=== PATIENT | male | born 1980 | race Two or more races ===

== ENCOUNTER → 2024-06-20 | Outpatient (CLI) | payer MEDICAID, SELFPAY ==
--- NOTE | 2024-06-20 14:30 | XR_ITS ---
Examination: Abdomen sonogram, complete Date and time of exam: June 20, 2024 1424 hours INDICATIONS: Elevated liver enzymes on laboratory examination performed one week ago. Technique: Multiple real-time grayscale transabdominal sonographic images of the abdomen have been obtained. Findings: Normal gallbladder Normal common bile duct 0.3 cm Pancreatic head 3.3 cm Mid and distal aorta not enlarged Liver 16.3 cm hyperechoic liver lesions 3.5 cm, 2.5 cm Normal hepatopedal portal venous oh Patent IVC Right kidney 11.8 cm renal cortex 2.0 cm Left kidney 12.4 cm cortex 2.2 cm Mild bilateral renal cortical scar formation Splenomegaly 13.8 cm IMPRESSION: Recommend CT scan abdomen pelvis pre and post intravenous contrast to confirm hemangiomatous in the right over the liver
== END | disposition home or self-care (01) ==
LOC: CDIM 14:06
PROVIDERS: PCP Nurse Practitioner Family; Referring Provider Nurse Practitioner Family; Visit Provider Nurse Practitioner Family
DX: R74.01 Elevation of levels of liver transaminase levels (principal)
CPT/HCPCS: 76700

== ENCOUNTER → 2024-07-12 | Outpatient (CLI) | payer MEDICAID, SELFPAY | END | disposition home or self-care (01) | PROVIDERS: PCP Nurse Practitioner Family; Referring Provider Nurse Practitioner Family; Visit Provider Nurse Practitioner Family | DX: Z53.8 Procedure and treatment not carried out for other reasons (principal) ==

== ENCOUNTER → 2024-07-17 | Outpatient (CLI) | payer MEDICAID, SELFPAY ==
--- NOTE | 2024-07-17 09:30 | XR_ITS ---
Examination: CT abdomen, without intravenous contrast. CT abdomen, with intravenous contrast. Sagittal and coronal 2-D reconstructions. Time of exam:July 17, 2024, 0912 hours INDICATIONS: Diagnosis liver disease, elevated liver enzymes on laboratory examination last month, CT abdomen 2013 10 mm hypodense upper right lobe liver lesion CTDI: vol (mGy) 22.5 DLP: (mGycm) 991 Technique: Multiple 3.0 mm axial noncontrast images of the abdomen have been obtained. Multiple 3.0 mm axial images post administration 60 cc Isovue-370 intravenous contrast have been obtained. Sagittal and coronal 3-D reconstructions have been obtained. Low dose protocols were performed. One or more of the following dose reduction techniques were used; automated exposure control, adjustment of the mA and/or KV according to patient size, use of iterative reconstruction technique. Findings: 35mm low density liver lesion with subtle nodular enhancement Slightly more caudad 21 mm liver lesion with nodular peripheral enhancement Spleen not enlarged No gallstones No pancreatic or adrenal mass No pancreatic mass Mild edema in the mesentery No bowel obstruction Normal appendix No diverticulitis IMPRESSION: Recommend MRI abdomen pre and post contrast follow-up to confirm hepatic hemangiomas
== END | disposition home or self-care (01) ==
LOC: CCTX 08:45
PROVIDERS: PCP Nurse Practitioner Family; Referring Provider Nurse Practitioner Family; Visit Provider Nurse Practitioner Family
DX: K76.9 Liver disease, unspecified (principal)
CPT/HCPCS: 74170; A4649; Q9967

== ENCOUNTER → 2024-08-31 | Outpatient (CLI) | payer MEDICAID, SELFPAY ==
--- NOTE | 2024-08-31 13:30 | XR_ITS ---
Examination: MRI abdomen with intravenous contrast. MRI abdomen without intravenous contrast. Date and time of exam: August 31, 2024 1326 hours INDICATIONS: Abdominal pain after eating beginning 4 months ago, CT abdomen pelvis July 17, 2024 35 mm low-density lesion with nodular enhancement and more caudad 21 mm liver lesion Technique: Multiple axial, sagittal and coronal sections of the abdomen obtained. Transverse images, TR 6020, TE 107. T1 weighted transverse images, TR 582, TE 9.5. T2-weighted sagittal images, TR 4000, TE 105. T2-weighted sagittal images, TR 4000, TE 5. Coronal images, TR 4210, TE 107. Axial and coronal images are obtained post 19 cc intravenous injection, gadolinium. Findings: Homogeneously enhancing liver lesions are depicted, anterior liver, 34 mm, 20 mm Differential would include hemangiomas, adenomas, focal nodular hyperplasia No intra or extra hepatic biliary tract dilatation No ascites Spleen not enlarged IMPRESSION: Liver lesions as above, recommend repeat hepatic sonography with the radiologist in attendance
== END | disposition home or self-care (01) ==
LOC: SMRI 13:00
PROVIDERS: PCP Nurse Practitioner Family; Referring Provider Nurse Practitioner Family; Visit Provider Nurse Practitioner Family
DX: K76.9 Liver disease, unspecified (principal)
CPT/HCPCS: 74183; A9579

== ENCOUNTER 2024-11-26 16:31 | Emergency (ER) | payer MEDICAID, SELFPAY ==
[2024-11-26 16:40] VITALS: BP 135/81; PULSE 71; RESP 18; TEMP 36.6; O2SAT 95
--- NOTE | 2024-11-26 16:48 | PD.EDRME ---
Rapid Medical Screening Exam E Arrival date/time: 11/26/24 16:31 44-year-old male with no known medical history presents to the emergency room with a chief complaint of urinary frequency, feeling like he is unable to fully empty his bladder, and dysuria x 2 weeks. I have greeted and performed a focused initial assessment of this patient. A comprehensive ED assessment and evaluation of the patient, analysis of all test results, and completion of the medical decision making process will be conducted by additional ED providers. Chief Complaint: Urogenital-Male Vital signs: Vital Signs Temperature 97.8 F 11/26/24 16:40 Pulse Rate 71 11/26/24 16:40 Respiratory Rate 18 11/26/24 16:40 Blood Pressure 135/81 H 11/26/24 16:40 Pulse Oximetry (%) 95 11/26/24 16:40 Oxygen Delivery Method Room Air 11/26/24 16:40 Vital signs reviewed by provider: Yes
[2024-11-26] MEDS: TAMSULOSIN HCL 0.4 MG CAPSULE PO (17:04)
[2024-11-26 17:53] LABS: Collection Type, Urine Clean Catch; Squamous Epithelial Cell,Urine 0 /hpf (0-5)
[2024-11-26 17:57] LABS: Bilirubin,Urine Negative (Negative); Blood,Urine Negative (Negative); Clarity,Urine Clear (Clear/Hazy); Color,Urine Lt-Yellow (Lt Yel-Yel); Culture Indicated,Urine Not Indicated; Glucose, Urine Negative (Negative); Ketones,Urine Negative (Negative); Leukocyte Esterase,Urine Negative (Negative); Nitrite,Urine Negative (Negative); PH,Urine 5.5 (5.0-7.0); Protein,Urine Negative (Neg - Trace); RBC,Urine 2 /hpf (0-3); Specific Gravity,Urine 1.032 (1.001-1.035); Urobilinogen,Urine Negative mg/dL (0.0-1.0); WBC,Urine 1 /hpf (0-5)
--- NOTE | 2024-11-26 18:57 | PD.EDMALE ---
ED Male Genitalurinary RME/HPI General Chief complaint: Urogenital-Male Stated complaint: BURNING/FOAMY WITH URINATION Time Seen by Provider: 11/26/24 18:56 Arrival date/time: 11/26/24 16:31 RME / HPI RME / HPI Narrative: 11/26/24 16:31 44-year-old male with no known medical history presents to the emergency room with a chief complaint of urinary frequency, feeling like he is unable to fully empty his bladder, and dysuria x 2 weeks. I have greeted and performed a focused initial assessment of this patient. A comprehensive ED assessment and evaluation of the patient, analysis of all test results, and completion of the medical decision making process will be conducted by additional ED providers. --------- Dr. Pruitt?s Main ED Evaluation: 44yo male presenting with dysuria and urinary frequency. This is the patient's 3rd presentation of similar symptoms. Denies fever, chills, nausea, or flank pain. No penile discharge. Denies nocturia or post-void dribbling. PMH included HTN and hyperthyroidism. PSH unremarkable. Social history unremarkable. NKDA. Related Data Home Medications ?Medication ?Instructions ?Recorded ?Confirmed levothyroxine 200 mcg tablet 200 mcg PO QDAY 03/12/19 03/12/19 Previous Rx's ?Medication ?Instructions ?Recorded cyclobenzaprine 10 mg tablet 10 mg PO TID PRN muscle spasm #30 03/12/19 tabs ibuprofen 800 mg tablet 800 mg PO TID PRN pain #30 tabs 03/12/19 ciprofloxacin HCl 500 mg tablet 500 mg PO Q12H #20 tabs 11/26/24 (Cipro) phenazopyridine 100 mg tablet 100 mg PO TID PRN pain 6 doses #6 11/26/24 (Pyridium) tabs Allergies Allergy/AdvReac Type Severity Reaction Status Date / Time NKA* Allergy Uncoded 07/04/13 21:59 Review of Systems Review of Systems Systems Reviewed: All systems reviewed, normal except as documented Past Medical History Social History SMOKING STATUS: Never smoker ED Exam Narrative Physical exam: GENERAL APPEARANCE: alert and oriented x 4, well-developed, well-nourished, no acute distress VITALS: All vitals were reviewed and the pulse ox is 95% on room air, which is normal according to my interpretation. HEENT: Normocephalic, atraumatic; pupils equal, round, reactive to light; EOMI; mucous membranes pink, moist; oropharynx clear NECK: Supple LUNGS: CTABL; no wheezes, no rales, no rhonchi HEART: Regular rate, regular rhythm; normal S1, S2; no murmurs ABDOMEN: non distended; normal BS; soft, no tenderness, no guarding, no rebound; no masses, no organomegaly, no hernia BACK: no CVA tenderness EXTREMITIES: atraumatic; no edema NEUROLOGIC: awake; alert and oriented x4; cranial nerves II-XII grossly intact; no focal sensory or motor deficits PSYCHIATRIC: appropriate mood and affect SKIN: warm, dry, normal color; no rashes Course Quality Measures none Orders Category Date Time Status UA, C/S IF [Urinalysis, C/S if Indicated] Stat Lab 11/26/24 17:41 Completed Ciprofloxacin HCl [Ciprofloxacin] Med 11/26/24 19:06 Discontinued 250 mg PO X1 ONE Phenazopyridine HCl [Pyridium] Med 11/26/24 19:06 Discontinued 100 mg PO X1 ONE Tamsulosin HCl [Flomax] Med 11/26/24 16:49 Discontinued 0.4 mg PO X1 ONE Vital Signs Vital signs: Vital Signs Temperature 97.8 F 11/26/24 16:40 Pulse Rate 71 11/26/24 16:40 Respiratory Rate 18 11/26/24 16:40 Blood Pressure 135/81 H 11/26/24 16:40 Pulse Oximetry (%) 95 11/26/24 16:40 Oxygen Delivery Method Room Air 11/26/24 16:40 Urogenital - Male [facility] Narrative [facility] Narrative:: Scribe Attestation: 11/26/24 - La Clarke am scribing for and in the presence of Dr. Pruitt. 44yo male presenting with dysuria and urinary frequency. This is the patient's 3rd presentation of similar symptoms. Denies fever, chills, nausea, or flank pain. Please see PE findings. UA is unremarkable. Given this is now the patient's 3rd presentation with urinary irritation symptoms, suspect urethritis. Will treat with Cipro and Pyridium empirically. Additional consideration is low grade prostatitis. Patient encouraged to follow-up with urology as recommended. Precaution instructions issued. Patient data External records reviewed:: [facility] previous records (Per chart review, patient has no relevant previous ED visits or admissions to this facility.) Clinical information provided by:: patient Social determinants that could affect healthcare access:: none Patient has the following chronic illnesses:: none How is presenting disease/condition affected by chronic disease/condition?: no chronic disease Evaluation data The following diagnostics were reviewed and interpreted by me:: lab results Lab and/or radiology exams considered but not ordered:: none Interpretation Summary: See MDM. Medications / Prescriptions Medications or Prescriptions considered but not ordered:: none Medication administrations:: Medication Administration History Discontinued Medications Ciprofloxacin (Ciprofloxacin Hcl 250 Mg Tablet) 250 mg PO X1 ONE Stop: 11/26/24 19:07 Phenazopyridine HCl (Phenazopyridine Hcl 100 Mg Tablet) 100 mg PO X1 ONE Stop: 11/26/24 19:07 Tamsulosin HCl (Tamsulosin Hcl 0.4 Mg Capsule) 0.4 mg PO X1 ONE Stop: 11/26/24 16:50 Last Admin: 11/26/24 17:04 Dose: 0.4 mg Documented By: see above Consultations Consultation(s) initiated? (list below): No Diagnosis Urogenital Male Differential Diagnosis: urinary tract infection, urethritis and prostatitis Most likely diagnosis given after review of the tests above:: urethritis Admission Indicated Admission indicated?: not indicated Admission Request Was there a request for admission?: No Disposition Plan Disposition Plan: Discharge Discharge Attestation Discharge Attestation: The patient and all family members were given an opportunity to ask questions and understood the discharge instructions. Discharge instructions specifically effects, indications for sooner follow up or return to the emergency department, and the expected course of current diagnosis. Patient condition: Stable Discharge Plan Plan Patient Disposition: HOME (Self Care) Discharge Disposition comment: Stable Prescriptions/Referrals Prescriptions/Med Rec: New ciprofloxacin HCl [Cipro] 500 mg tablet 500 mg PO Q12H Qty: 20 0RF phenazopyridine [Pyridium] 100 mg tablet 100 mg PO TID PRN (Reason: pain) Qty: 6 0RF No Action levothyroxine 200 mcg Tablet 200 mcg PO QDAY cyclobenzaprine 10 mg tablet 10 mg PO TID PRN (Reason: muscle spasm) Qty: 30 0RF ibuprofen 800 mg tablet 800 mg PO TID PRN (Reason: pain) Qty: 30 0RF Problem List Clinical Impression: Urethritis Impression comment: Urethritis Patient/Caregiver Discharge Instructions Education Materials: Urethritis in Men Additional Instructions: Force fluids/medications as directed/follow-up with urologist within 1 to 2 weeks. Return if worsening i.e. fevers chills increased urinary irritative symptoms or general worse condition. Print Language: Armenian
[2024-11-26] MEDS: CIPROFLOXACIN HCL 250 MG TABLET PO (19:17)
[2024-11-26] MEDS: PHENAZOPYRIDINE HCL 100 MG TABLET PO (19:17)
[2024-11-26 19:30] VITALS: BP 136/66; PULSE 65; RESP 17; TEMP 36.5; O2SAT 100
== END 2024-11-26 19:31 | disposition home or self-care (01) ==
PROVIDERS: Nurse Practitioner Family; Emergency Provider Emergency Medicine; PCP Nurse Practitioner Family
DX: N34.2 Other urethritis (principal); I10 Essential (primary) hypertension; E05.90 Thyrotoxicosis, unspecified without thyrotoxic crisis or storm; Z79.890 Hormone replacement therapy
CPT/HCPCS: 81001; 99283; A9270

== ENCOUNTER → 2025-01-16 | Outpatient (CLI) | payer MEDICAID, SELFPAY ==
--- NOTE | 2025-01-16 13:00 | XR_ITS ---
Examination: Retroperitoneal ultrasound, complete Technique: Multiple high resolution grayscale images of the retroperitoneum obtained, including kidneys and bladder. Exam date and time:May 2024 1301 hours INDICATIONS: Hematuria episodes on left are examination beginning 2 months ago. FINDINGS: Right kidney 11.6 cm cortex 2.4 cm Left kidney 12.4 cm cortex 2.3 cm 9 mm midpole left renal calculus Moderate renal scar formation Contracted urinary bladder Prostate volume 48 cc no prostate nodules IMPRESSION: 9 mm nonobstructing left renal calculus Moderate bilateral renal parenchymal scar formation
== END | disposition home or self-care (01) ==
LOC: CDIM 12:27
PROVIDERS: PCP Physician Assistant; Referring Provider Physician Assistant; Visit Provider Physician Assistant
DX: N20.0 Calculus of kidney (principal); N28.89 Other specified disorders of kidney and ureter
CPT/HCPCS: 76770